=== PATIENT | male | born 1990 | race Caucasian/White ===

== ENCOUNTER 2020-01-27 19:30 | Emergency (ER) | payer OTHER ==
[~2020-01-27] VITALS: Ht 175.3 cm; Wt 88.0 kg
[2020-01-27 21:10] LABS: BASO # 0.1 10^3/uL (0.0-0.2); BASO % 1.2 % (0.0-1.0); EOS # 0.4 10^3/uL (0.0-0.5); EOS % 4.8 % (0.0-3.0); HEMATOCRIT 52.1 % (42.0-52.0); HEMOGLOBIN 17.9 g/dl (13.5-17.5); LYMPH # 2.2 10^3/uL (1.5-5.0); LYMPH % 30.3 % (24.0-44.0); MEAN CORPUSCULAR HEMOGLOBIN 29.8 pg (27.0-33.0); MEAN CORPUSCULAR HGB CONC 34.4 g/dl (32.0-36.5); MEAN CORPUSCULAR VOLUME 86.7 fl (80.0-96.0); MONO # 0.8 10^3/uL (0.0-0.8); MONO % 11.2 % (0.0-5.0); NEUTROPHILS # 3.8 10^3/uL (1.5-8.5); NEUTROPHILS % 52.2 % (36.0-66.0); PLATELET COUNT, AUTOMATED 357 10^3/uL (150-450); RED BLOOD COUNT 6.01 10^6/uL (4.30-6.10); WHITE BLOOD COUNT 7.3 10^3/uL (4.0-10.0)
[2020-01-27] MEDS ORDERED: methylPREDNISolone 125MG 2ML VIAL IV ONE (21:45)
[2020-01-27 21:47] LABS: ERYTHROCYTE SEDIMENTATION RATE 2 mm/hr (0-15)
--- NOTE | 2020-01-27 22:11 | REPVR ---
PROCEDURE INFORMATION: Exam: CT Head Without Contrast Exam date and time: 01/27/2020 9:55 PM Age: 29 years old Clinical indication: Numbness / parasthesia; Additional info: Numbness to L side of face TECHNIQUE: Imaging protocol: Computed tomography of the head without contrast. Radiation optimization: All CT scans at this facility use at least one of these dose optimization techniques: automated exposure control; mA and/or kV adjustment per patient size (includes targeted exams where dose is matched to clinical indication); or iterative reconstruction. COMPARISON: No relevant prior studies available. FINDINGS: Brain: Normal. No hemorrhage. Unremarkable white matter. No mass effect. Ventricles: Normal. No ventriculomegaly. Bones/joints: Unremarkable. No acute fracture. Sinuses: Mild mucosal thickening in the sinuses. No layering sinus fluid. Mastoid air cells: Visualized mastoid air cells are well aerated. Soft tissues: Unremarkable. IMPRESSION: No acute intracranial abnormality. Electronically signed by: Bhavesh Leach On 01/27/2020 22:10:42 PM
[2020-01-27] MEDS ORDERED: AUGM875T28 PO (22:37)
[2020-01-27] MEDS ORDERED: PRED20TA PO (22:37)
[2020-01-27 22:45] VITALS: BP 126/73
[2020-01-27] MEDS ORDERED: AUGMENTIN 875 MG TAB PO ONE (22:45)
== END 2020-01-27 22:49 | disposition home or self-care (01) ==
LOC: M ED 19:30
DX: G51.0 Bell's palsy (principal); H66.92 Otitis media, unspecified, left ear
CPT/HCPCS: 70450; 80047; 83605; 85025; 85652; 86140; 87040; 96374; 99284; J2930

== ENCOUNTER → 2022-03-26 | Outpatient (REF) | payer OTHER ==
[~2022-03-26] MED LIST: AUGM875T28 PO; PRED20TA PO
== END ==
LOC: M SMT 13:19
PROVIDERS: ATTEND Urology
DX: Z30.2 Encounter for sterilization (principal)

== ENCOUNTER 2023-10-13 19:36 | Emergency (ER) | payer OTHER ==
[~2023-10-13] VITALS: Ht 175.3 cm; Wt 98.3 kg
[2023-10-13 19:37] VITALS: BP 124/80; TEMP 98.4; O2SAT 98
== END 2023-10-13 21:03 | disposition left against medical advice (07) ==
LOC: M ED 19:36
DX: Z53.21 Procedure and treatment not carried out due to patient leaving prior to being seen by health care provider (principal)